=== PATIENT | male | born 1945 | race Caucasian/White ===

== ENCOUNTER 2020-04-27 09:35 | Outpatient (CLI) | payer MEDICARE, SELFPAY ==
--- NOTE | 2020-04-27 09:44 | XR_ITS ---
WS: [id number] Exam: XR lumbar spine 6V w f/e [id number] Date/Time of Exam: 04/27/2020 10:05 AM Reason For Exam: back pain No fracture or dislocation. Levoscoliosis of the lower T-spine and upper L-spine. Spondylosis noted. Degenerative disc thinning at all levels. Facet arthropathy at all levels. Flexion-extension views de monstrate no significant subluxation or instability. Posterior bone spurring of vertebral bodies seen at L1-2, L2-3 and L4-5. This can be related to spinal canal stenosis in the appropriate clinical set tin. XR/XR lumbar spine 6V w f/e [id number] IMPRESSION: 1. No fracture or malalignment noted. No instability or subluxation noted on fl exion or extension views. 2. Degenerative changes and scoliosis. See above discussion.
== END 2020-04-27 09:36 | disposition home or self-care (01) ==
PROVIDERS: PCP Nurse Practitioner Family; Visit Provider Family Medicine
DX: M54.5 Low back pain (principal)
CPT/HCPCS: 72114

== ENCOUNTER 2020-05-07 08:23 | Outpatient (CLI) | payer MEDICARE, SELFPAY ==
--- NOTE | 2020-05-07 08:43 | CT_ITS ---
WS: [id number] CT LUMBAR SPINE TECHNIQUE: Contrast-enhanced CT of the lumbar spine with coronal and sagittal reformatted images. CLINICAL INFORMATION: M48.061 - Spinal stenosis, lumbar region without neurogenic claudication COMPARISON: None. DLP: 1940.[address] scans at [facility] use at least one of these dose optimization techniques: automat ed exposure control; mA and/or kV adjustment per patient size (includes targeted exams where dose is matched to clinical indication); or iterative reconstruction. FINDINGS: Lumbar scoliosis convex right in the lumbar spine. No high-grade central canal stenosis. Prior postop erative changes probable left L3-4 L4-5 and left L5-S1 laminectomies. L1-L2: Disc osteophytic ridging with a tiny right subarticular disc osteophyte protrusion. Narrowing of the right subarticular recess. Impingement traversing right L2 nerve root. Moderate facet arthropa thy. Mild right foraminal narrowing. L2-L3: Shallow right subarticular disc bulging. Impingement on the traversing right L3 nerve root. Mi ld central canal stenosis. Moderate facet arthropathy. Foramen are patent. L3-L4: Mild disc bulging with osteophytic ridging. Moderate facet arthropathy. Mild central canal milka nosis. Mild right foraminal narrowing. Moderate facet arthropathy. L4-L5: Disc osteophyte complex with endplate ridging. Mild central canal stenosis. Impingement jose cruz sing L5 nerve roots bilaterally in the subarticular recess. Advanced facet arthropathy. Mild right fo raminal narrowing. Left foramen is patent. L5-S1: Tiny central disc osteophyte complex with slight contact of the traversing S1 nerve roots. Mil d central canal stenosis. Mild right and no significant left foraminal narrowing. Mild to moderate fa cet arthropathy. Visualized pelvic bony structures: Normal. Paravertebral soft tissues: Normal. CT/CT lumbar spine w con [id number] IMPRESSION: 1. Lumbar scoliosis convex right. No acute compression fractures. No high-grad e central canal stenosis. 2. Mild central canal stenosis L2-L3, L3-L4 and L4-5 worse L4-5 with impingeme nt traversing L5 nerve roots bilaterally. 3. Tiny central disc osteophyte protrusion L5-S1 slightly contacts the sam ing S1 nerve roots bilaterally. Mild right L5-S1 foraminal narrowing. 4. Otherwise mild bony foraminal narrowing worse at right L3-4, and right L4-5 . 5. Moderate facet arthropathy L3-L4. Advanced facet arthropathy L4-5. 6. Remote appearing probable laminectomy defects at L3-L4 L4-L5 and L5-S1
[2020-05-07 09:18] LABS: Blood Urea Nitrogen 15 mg/dL (8-23)
[2020-05-07] MEDS: iodixanol 320 mg/mL 100mL Btl IV (09:25)
== END 2020-05-07 08:24 | disposition home or self-care (01) ==
LOC: RAD 08:27 → WPI 08:32
PROVIDERS: PCP Family Medicine; Visit Provider Family Medicine
DX: M48.061 Spinal stenosis, lumbar region without neurogenic claudication (principal); M47.816 Spondylosis without myelopathy or radiculopathy, lumbar region; M25.78 Osteophyte, vertebrae; M51.27 Other intervertebral disc displacement, lumbosacral region; M41.86 Other forms of scoliosis, lumbar region
CPT/HCPCS: 72132; 82565; 84520

== ENCOUNTER 2024-04-21 06:25 | Inpatient (IN) | payer MEDICARE, SELFPAY ==
[2024-04-21] VITALS (30 sets, daily range): BP systolic 103–146; BP diastolic 63–105; PULSE 68–103; RESP 11–20; TEMP 36.6–36.9; O2SAT 85–99; BMI 28.7
--- NOTE | 2024-04-21 06:34 | CTR_ITS ---
PROCEDURE INFORMATION: Exam: CTA Head With Contrast, Arteriography Exam date and time: 04/21/2024 6:45 AM Age: 79 years old Clinical indication: Dizziness and giddiness; C/O dizziness with confusion. Last known well time of 0400 hours. ; Additional info: CVA TECHNIQUE: Imaging protocol: Computed tomographic angiography of the head with contrast. Exam focused on the arteries. 3D rendering (Not supervised by radiologist): MIP and/or 3D reconstructed images were created by the technologist. Radiation optimization: All CT scans at this facility use at least one of these dose optimization techniques: automated exposure control; mA and/or kV adjustment per patient size (includes targeted exams where dose is matched to clinical indication); or iterative reconstruction. Contrast material: OMNI 350; Contrast volume: 100 ml; Contrast route: INTRAVENOUS (IV); COMPARISON: CT head thrombolytic [id number] 04/21/2024 6:38 AM RADIATION DOSE METRICS: Total DLP (mGy-cm): 537.82 FINDINGS: ANTERIOR CIRCULATION: Right internal carotid artery: Intracranial segment is patent with no significant stenosis. No aneurysm. Right middle cerebral artery: No occlusion or significant stenosis. No aneurysm. Right anterior cerebral artery: No occlusion or significant stenosis. No aneurysm. Left internal carotid artery: Intracranial segment is patent with no significant stenosis. No aneurysm. Left middle cerebral artery: No occlusion or significant stenosis. No aneurysm. Left anterior cerebral artery: No occlusion or significant stenosis. No aneurysm. POSTERIOR CIRCULATION: Right vertebral artery: No occlusion or significant stenosis. No aneurysm. Left vertebral artery: No occlusion or significant stenosis. No aneurysm. Basilar artery: No occlusion or significant stenosis. No aneurysm. Right posterior cerebral artery: No occlusion or significant stenosis. No aneurysm. Left posterior cerebral artery: No occlusion or significant stenosis. No aneurysm. Brain: No definite mass, mass effect, or midline shift. Cerebral ventricles: No ventriculomegaly. Bones/joints: Unremarkable. No acute fracture. Soft tissues: Unremarkable. PROCEDURE INFORMATION: Exam: CTA Neck With Contrast Exam date and time: 04/21/2024 6:45 AM Age: 79 years old Clinical indication: Dizziness and giddiness; C/O dizziness with confusion. Last known well time of 0400 hours. ; Additional info: CVA TECHNIQUE: Imaging protocol: Computed tomographic angiography of the neck with contrast. Exam focused on the cervical segments of the vasculature. 3D rendering (Not supervised by radiologist): MIP and/or 3D reconstructed images were created by the technologist. Radiation optimization: All CT scans at this facility use at least one of these dose optimization techniques: automated exposure control; mA and/or kV adjustment per patient size (includes targeted exams where dose is matched to clinical indication); or iterative reconstruction. Contrast material: OMNI 350; Contrast volume: 100 ml; Contrast route: INTRAVENOUS (IV); COMPARISON: CT head thrombolytic [id number] 04/21/2024 6:38 AM RADIATION DOSE METRICS: Total DLP (mGy-cm): 537.82 FINDINGS: Right common carotid artery: No stenosis. No dissection or occlusion. Right internal carotid artery: No stenosis of the extracranial segment. No dissection or occlusion. Right external carotid artery: No occlusion or stenosis of the origin. Left common carotid artery: No stenosis. No dissection or occlusion. Left internal carotid artery: No stenosis of the extracranial segment. No dissection or occlusion. Left external carotid artery: No occlusion or stenosis of the origin. Right vertebral artery: No stenosis. No dissection or occlusion. Left vertebral artery: There is epqh-jy-bjtkipcn narrowing involving the origin of the left vertebral artery estimated at 50%. Soft tissues: Normal. No significant soft tissue swelling. Bones/joints: No acute fracture. Lungs: There are emphysematous changes at the lung apices. CT/CT angio headneck* [id number] IMPRESSION: No large vessel stenosis or occlusion. IMPRESSION: 1. Cqjw-hu-aeaeobhf narrowing involving the origin of the left vertebral artery with estimated stenosis of 50%. 2. No high-grade stenosis or occlusion identified. REFERENCES: NASCET CRITERIA. The degree of stenosis in the cervical segment of the internal carotid artery is based on NASCET criteria. Normal is no stenosis. Mild is less than 50% stenosis. Moderate is 50-69% stenosis. Severe is 70% to 99% stenosis. Total occlusion is no detectable patent lumen.
--- NOTE | 2024-04-21 06:34 | ECG_ITS ---
[place] Test Date: 2024-04-21 Pat Name: Cuate Paez Department: Room: Gender: Male Bung Remover: : 1945 Requested By: Parth Vaughn Order Number: [id number] Reading MD: ARTEMIO SMITH Measurements Intervals [place] Rate: 89 P: 50 GA: 198 QRS: -48 QRSD: 96 T: 64 QT: 327 QTc: 398 Interpretive Statements SINUS RHYTHM PATTERN CONSISTENT WITH PULMONARY DISEASE LEFT ANTERIOR FASCICULAR BLOCK [QRS AXIS <= -45, QR IN I, RS IN II] No previous ECG available for comparison Electronically Signed On 04-22-2024 18:08:47 CDT by ARTEMIO SMITH [email or web address]
--- NOTE | 2024-04-21 06:34 | XRR_ITS ---
PROCEDURE INFORMATION: Exam: XR Chest Exam date and time: 04/21/2024 6:49 AM Age: 79 years old Clinical indication: Other: CVA TECHNIQUE: Imaging protocol: Radiologic exam of the chest. Views: 1 view. COMPARISON: CT angio headneck* [id number] 04/21/2024 6:45 AM FINDINGS: Lungs: There are peripheral airspace opacities involving both lungs. These could be acute or chronic. Please note that there are no prior exams available for to document chronicity. Lungs are otherwise clear. Pleural spaces: Unremarkable. No pleural effusion. No pneumothorax. Heart/Mediastinum: Unremarkable. No cardiomegaly. Bones/joints: Unremarkable. XR/XR chest 1V portable [id number] IMPRESSION: 1. Peripheral airspace opacities involving both lungs. Potentially these could be chronic. Acute pneumonia can not be excluded on this single exam.
--- NOTE | 2024-04-21 06:34 | CTR_ITS ---
PROCEDURE INFORMATION: Exam: CT Head Without Contrast Exam date and time: 04/21/2024 6:38 AM Age: 79 years old Clinical indication: Stroke-like symptoms; Dizziness/giddiness; Additional info: Symptoms of acute stroke TECHNIQUE: Imaging protocol: Computed tomography of the head without contrast. Radiation optimization: All CT scans at this facility use at least one of these dose optimization techniques: automated exposure control; mA and/or kV adjustment per patient size (includes targeted exams where dose is matched to clinical indication); or iterative reconstruction. Other technique: STROKE PROTOCOL was implemented. COMPARISON: No relevant prior studies available. RADIATION DOSE METRICS: Total DLP (mGy-cm): 1101.18 FINDINGS: Brain: There is prominence of the subarachnoid spaces compatible with atrophy. There is small-vessel ischemic change within the periventricular white matter. No acute stroke or hemorrhage is appreciated. Cerebral ventricles: No ventriculomegaly. Paranasal sinuses: Visualized sinuses are unremarkable. No fluid levels. Mastoid air cells: Visualized mastoid air cells are well aerated. Bones: Unremarkable. No acute fracture. Soft tissues: Unremarkable. CT/CT head thrombolytic [id number] IMPRESSION: 1. Atrophy with small-vessel ischemic change. ASSESSMENT: ASPECTS (Shelli Stroke Program Early CT Score) is 10.
--- NOTE | 2024-04-21 06:35 | ED_ITS ---
HPI - Weakness 2 General: Chief complaint: Weakness Stated complaint: DIZZY,AMS Time Seen by Provider: 04/21/24 06:27 Source: patient and EMS Mode of arrival: EMS Limitations: no limitations History of Present Illness: 79-year-old male states that he had sudd en onset of dizziness weakness not feeling well and diaphoresis at 4 AM. He states he is awake when it happened. He states that since then he has felt very unsteady with his gait he denies any chest pain denies any headache denies any slurred speech or one-sided weakness. No history of stroke. Associated symptoms: Denies chest pain, chills, fever(s), headache(s), nausea or vomiting Review of Systems 2 Const: Denies: fever(s), chills, body aches or change in appetite Eyes: Denies: blurry vision or eye discomfort ENMT: Denies: throat pain or dental pain Card: Denies: chest pain Resp: Denies: dyspnea GI: Denies: abdominal pain, nausea, vomiting or diarrhea Musc: Denies: neck pain or back pain Skin/Breast: Denies: rash Neuro: Reports: vertigo; Denies: headache(s) PFSH ED 2 PFSH: Medical History Hx of skin cancer, basal cell Surgical History H/O tooth extraction History of lumbar surgery History of tonsillectomy H/O vasectomy Family History Other Arthritis Cancer Hypertension Social History Smoking and tobacco/nicotine status: former use of tobacco/nicotine Quit status (tobacco/nicotine): has quit using Year quit tobacco: 1995 Physical Exam 2 Const: COMMON NORMALS: patient oriented x3 HENMT: COMMON NORMALS: normocephalic and atraumatic HEAD & SCALP: n ormocephalic and atraumatic Eye: COMMON NORMALS: Equal, round and reactive pupils present and EOMs intact bilaterally PUPIL: Yes Equal, round and reactive pupils present Neck/C-Spine: COMMON NORMALS: full ROM and supple Chest: COMMONS NORMALS: normal inspection of the chest Resp: COMMON NORMALS: normal respiratory effort, No retractions, No use of accessory muscles and clear to auscultation bilaterally AUSCULTATION: clear to auscultation bilaterally Cardio: COMMON NORMALS: regular rate, regular rhythm and No murmurs present (Cardio) RATE: regular rate RHYTHM: regular rhythm GI: COMMON NORMALS: Normal to inspection, nondistended, normoactive bowel sounds present, Soft to palpation, non-tender and no masses PALPATION: Yes Soft to palpation Extremity: COMMON NORMALS: normal to inspection and full ROM Neuro: COMMON NORMALS: patient oriented x3 and moves all extremities C RANIAL NERVES: Yes CN normal except as noted SPEECH: speech normal GAIT: Y es Ataxic gait present MOTOR EXAM: 5/5 motor strength present throughout Psych: COMMON NORMALS: mental status grossly normal, Normal thought process present and cooperative THOUGHT PROCESS: Normal thought process present Skin: COMMON NORMALS: no rashes or lesions noted and no wounds GENERAL SKIN EXAM: no rashes or lesions noted Course 2 Vital Signs: Vital signs: Vital Signs Temperature 97.8 F 04/21/24 06:30 Pulse Rate 90 04/21/24 07:46 Respiratory Rate 18 04/21/24 07:46 Blood Pressure 122/79 04/21/24 07:46 Pulse Oximetry 96 04/21/24 07:25 Oxygen Delivery Me thod Room Air 04/21/24 07:25 MDM - Weakness Medical Decision Making Patient presents here with severe vertigo he is quite ataxic concerns for posterior stroke. I did consult [facility] neurology. We did have significant delay with difficulties with the telestroke machine. Dr. Moon was going to evaluate the patient she attempted to call into the telestroke machine and initially had connection but then the connection was lost we did attempt again that due to her not to be able to connect I did speak to her and we have made a mutual decision the patient did require TNKase I did give him TNKase here he consented spoke to the hospitalist will admit for likely CVA. Medical Records I reviewed the patient's medical records. Lab Data I reviewed the patient's lab results. 04/21/24 06:52 04/21/24 06:52 Radiology Impressions Chest X-Ray 04/21/24 06:34 IMPRESSION: 1. Peripheral airspace opacities involving both lungs. Potentially these could be chronic. Acute pneumonia can not be excluded on this single exam. Head CT 04/21/24 06:34 IMPRESSION: 1. Atrophy with small-vessel ischemic change. ASSESSMENT: ASPECTS (Shelli Stroke Program Early CT Score) is 10. ADDENDUM: 04/21/24 0706 COMMENT: THIS REPORT CONTAINS FINDINGS THAT MAY BE CRITICAL TO PATIENT CARE. The exam findings were verbally communicated by me to KULWANT QUINONEZ via telephone conference at 7:04 AM CDT on 04/21/2024. The findings were acknowledged and understood. Head/Neck CTA 04/21/24 06:34 IMPRESSION: No large vessel stenosis or occlusion. IMPRESSION: 1. Pbqm-eg-jpmsvwht narrowing involving the origin of the left vertebral artery with estimated stenosis of 50%. 2. No high-grade stenosis or occlusion identified. REFERENCES: NASCET CRITERIA. The degree of stenosis in the cervical segment of the internal carotid artery is based on NASCET criteria. Normal is no stenosis. Mild is less than 50% stenosis. Moderate is 50-69% stenosis. Severe is 70% to 99% stenosis. Total occlusion is no detectable patent lumen. Laboratory Results WBC 8.40 10^3/uL (3.29-11.43) 04/21/24 06:52 RBC 5.48 10^6/uL (3.85-5.65) 04/21/24 06:52 Hgb 15.00 g/dL (11.27-16.99) 04/21/24 06:52 Hct 45.3 % (37-53) 04/21/24 06:52 MCV 82.7 fl (82-101) 04/21/24 06:52 MCH 27.4 pg (27-33) 04/21/24 06:52 MCHC 33.1 g/dL (30-55) 04/21/24 06:52 RDW 12.6 % (12.1-15.1) 04/21/24 06:52 Plt Count 232 10^3/cmm (157-399) 04/21/24 06:52 MPV 10.0 fL (7.4-10.4) 04/21/24 06:52 Neut % (Auto) 73.2 % 04/21/24 06:52 Lymph % (Auto) 17.1 % 04/21/24 06:52 [place] % (Auto) 6.1 % 04/21/24 06:52 Eos % (Auto) 2.5 % 04/21/24 06:52 Baso % (Auto) 1.0 % 04/21/24 06:52 Neut # (Auto) 6.15 10^3/uL (1.8-7.7) 04/21/24 06:52 Lymph # (Auto) 1.4 10^3/uL (0.8-4.8) 04/21/24 06:52 [place] # (Auto) 0.5 10^3/uL (0.2-0.9) 04/21/24 06:52 Eos # (Auto) 0.2 10^3/uL (0.0-0.8) 04/21/24 06:52 Baso # (Auto) 0.1 10^3/uL (0.0-0.1) 04/21/24 06:52 Nucleated RBC % (auto) 0 % 04/21/24 06:52 Nucleated RBCs # 0.0 /100WBC 04/21/24 06:52 PT 13.90 SECONDS (12.1-14.9) 04/21/24 06:52 INR 1.00 (0.8-1.2) 04/21/24 06:52 APTT 30.5 SECONDS (23.9-36.7) 04/21/24 06:52 Sodium 139 mmol/L (136-145) 04/21/24 06:52 Potassium 4.3 mmol/L (3.5-5.1) 04/21/24 06:52 Chloride 102 mmol/L (98-107) 04/21/24 06:52 Carbon Dioxide 24 mmol/L (22-29) 04/21/24 06:52 Anion Gap 17.3 (5-19) 04/21/24 06:52 BUN 15 mg/dL (8-23) 04/21/24 06:52 Creatinine 1.2 mg/dL (0.7-1.2) 04/21/24 06:52 GFR Calculation Not Reportable 04/21/24 06:52 Glucose 124 mg/dL (65-115) H 04/21/24 06:52 POC Glucose 126 mg/dL (70-110) H 04/21/24 06:48 Calculated Osmolality 290 mOsm/kg (285-295) 04/21/24 06:52 Calcium 9.6 mg/dL (8.5-10.5) 04/21/24 06:52 Total Bilirubin 0.6 mg/dL (0.15-1.2) 04/21/24 06:52 AST 23 U/L (0-40) 04/21/24 06:52 ALT 22 U/L (0-41) 04/21/24 06:52 Alkaline Phosphatase 97 U/L (40-130) 04/21/24 06:52 Total Protein 7.5 g/dL (6.6-8.7) 04/21/24 06:52 Albumin 4.4 g/dL (3.5-5.2) 04/21/24 06:52 Globulin 3.1 g/dL (1.3-4.6) 04/21/24 06:52 All radiology interpretation(s) finalized by discharge EKG Data EKG 1: I personally reviewed and interpreted this EKG as follows: EKG interpretation date: 04/21/24 EKG interpretation time: 06:56 Interpretation: nsr hr [address] elevation qrs 96 qtc 373 Discharge Plan Discharge Patient Disposition: Admitted As Inpatient Clinical Impression: CVA (cerebral vascular accident), Vertigo Condition: Stable Prescriptions: No Action celecoxib 200 mg capsule 200 mg PO DAILY Qty: 90 1RF Referrals: Genna Rios MD [Primary Care Provider] - Print Language: Hungarian Coding Level of Care Code ED Recruiting Team Lead for Chg Fwd Related Data Previous Rx's ?Medication ?Instructions ?Recorded celecoxib 200 mg capsule 200 mg PO DAILY #90 caps 02/27 Allergies Allergy/AdvReac Type Severity Reaction Status Date / Time No Known Allergies Allergy Verified 04/23/20 14:08 NIH stroke score NIHSS Level Of Consciousness - 1a: 0 Level Of Consciousness Questions - 1b: Both Correct Level Of Consciousness Commands - 1c: Both Correct Best Gaze - 2: Normal Visual Nesbitt - 3: No Visual Loss Facial Palsy - 4: Normal Motor Arm Right - 5: No Drift Motor Arm Left - 5: No Drift Motor Leg Right - 6: No Drift Motor Leg Left - 6: No Drift Limb Ataxia - 7: Absent Sensory - 8: Normal Best Language - 9: No Aphasia Dysarthia - 10: Normal Extinction And Inattention - 11: 0 Score Total Score: 0
[2024-04-21] MEDS: iohexol 350 mg/mL 500 mL Btl (per mL) IV (06:52)
[2024-04-21 06:55] LABS: Glucose Point of Care 126 mg/dL (70-110)
--- NOTE | 2024-04-21 06:55 | PC.NURSE ---
bg 126
[2024-04-21 07:02] LABS: Basophils # 0.1 10^3/uL (0.0-0.1); Eosinophils # 0.2 10^3/uL (0.0-0.8); Eosinophils % 2.5 %; Hematocrit 45.3 % (37-53); Lymphocytes # 1.4 10^3/uL (0.8-4.8); Lymphocytes % 17.1 %; Mean Corpuscular HGB Conc 33.1 g/dL (30-55); Mean Corpuscular Hemoglobin 27.4 pg (27-33); Mean Corpuscular Volume 82.7 fl (82-101); Monocytes # 0.5 10^3/uL (0.2-0.9); Monocytes % 6.1 %; Neutrophils # 6.15 10^3/uL (1.8-7.7); Neutrophils % 73.2 %; Nucleated Red Blood Cells % 0 %; Platelet Count 232 10^3/cmm (157-399); Red Blood Count 5.48 10^6/uL (3.85-5.65); Red Cell Distribution Width 12.6 % (12.1-15.1)
[2024-04-21 07:11] LABS: Partial Thromboplastin Time 30.5 SECONDS (23.9-36.7)
[2024-04-21 07:14] LABS: Alanine Aminotransferase 22 U/L (0-41); Albumin Level 4.4 g/dL (3.5-5.2); Alkaline Phosphatase 97 U/L (40-130); Aspartate Amino Transferase 23 U/L (0-40); Blood Urea Nitrogen 15 mg/dL (8-23); Calcium 9.6 mg/dL (8.5-10.5); Carbon Dioxide 24 mmol/L (22-29); Chloride 102 mmol/L (98-107); Globulin 3.1 g/dL (1.3-4.6); Glucose 124 mg/dL (65-115); Osmolality Calculated 290 mOsm/kg (285-295); Sodium 139 mmol/L (136-145); Total Bilirubin 0.6 mg/dL (0.15-1.2); Total Protein 7.5 g/dL (6.6-8.7)
[2024-04-21 07:16] LABS: Anion Gap 17.3 (5-19); Potassium 4.3 mmol/L (3.5-5.1)
[2024-04-21] MEDS: tenecteplase 50mg Kit (STROKE) 23 MG IVP (07:28)
--- NOTE | 2024-04-21 07:31 | P.HP_ITS ---
Providers/Chief Complaint 2 Primary Care Provider: Genna Rios MD Chief Complaint: DIZZY,AMS History of Present Illness Cuate Paez is a 79 year old male with a past medical history significant for spinal stenosis and back pain who presents to the emergency department with sudden onset of dizziness and weakness. Reports onset at 4 AM. Reports associated diaphoresis. Standing, movement and walking significantly worsens his symptoms. Resting still improves symptoms. Denies fevers, chills, headache, vision changes, slurred speech, weakness in extremities, or sensation changes. Denies history of prior TIA or stroke. In the emergency department, CT head showed atrophy with small vessel ischemic changes. 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 ED provider reports he consulted and discussed patient with [facility] neurology which recommended TNKase which was administered. Review of Systems 2 Narrative: A complete review of systems was obtained and is negative except as stated in HPI. Medications/Allergies Home Medications ?Medication ?Instructions ?Recorded ?Confirmed ?Last Taken ?Type celecoxib 200 mg capsule 200 mg PO DAILY #90 caps 02/2704/21/24 04/20/24 Rx acetaminophen 325 mg tablet 650 mg PO QID PRN Fever Or Pain 04/21/24 04/21/24 Unknown History (Tylenol) atorvastatin 20 mg tablet 20 mg PO BEDTIME 04/21/2404/19/24 20:00 History multivitamin 1 tab PO DAILY 04/21/2404/0604/20/24 History omeprazole 40 mg capsule,delayed 40 mg PO DAILY 04/21/24 04/20/24 History release Allergies Allergy/AdvReac Type Severity Reaction Status Date / Time No Known Allergies Allergy Verified 04/23/20 14:08 PFSH Acute 2 PFSH: Medical History Hx of skin cancer, basal cell Surgical History H/O tooth extraction History of lumbar surgery History of tonsillectomy H/O vasectomy Family History Other Arthritis Cancer Hypertension Social History (Updated 04/21/24 @ 12:21 by Vineet Houston MD) Smoking and tobacco/nicotine status: former use of tobacco/nicotine Quit status (tobacco/nicotine): has quit using Year quit tobacco: 1995 Alcohol intake: never Substance/Drug Use: never Vitals/I&O/Wt Last Vital Signs Temp 97.8 F 04/21/24 06:30 Pulse 97 04/21/24 07:25 Resp 18 04/21/24 07:25 BP 146/88 04/21/24 07:25 Pulse Ox 96 04/21/24 07:25 O2 Del Method Room Air 04/21/24 07:25 04/20/24 04/21/24 04/21/24 22:59 06:59 14:59 Intake Total 0 / 0 Balance 0 / 0 Weight last 48 hrs Weight 97.976 kg Weight 90.718 kg Physical Exam 2 Narrative: General: Patient is awake and alert. Head: Normocephalic. Atraumatic. EOM intact. Neck: No JVD. Cardiovascular: RRR. No gallops. No murmurs. Lungs: Clear to auscultation, no use of accessory muscles, no crackles or wheezes. Skin: No jaundice. No rashes. Abdomen: Normal bowel sounds, abdomen soft and nontender. Genito Urinary: Genital exam not performed since complaints not related. Rectal: Rectal exam not performed since no symptoms indicated blood loss. Extremities: No cyanosis or clubbing. Musculoskeletal:No swollen or erythematous joints. Neurological: Moves all 4 extremities. No myoclonus. Cranial nerves II through XII grossly intact. Ataxia present in bilateral upper extremities, left worse than right. Gait was not observed due to symptomatology. Data 04/21/24 06:52 04/21/24 06:52 A&P Assessment and plan (1) CVA (cerebral vascular accident): Presentation is slightly suspicious for posterior stroke Imaging reviewed Repeat head CT in 24 hours Echo ordered Telemetry monitoring Patient is status post TNKase in ED Admit to the intensive care unit under thrombolytic protocol Serial neurological exams Bedside swallow check with aspiration precautions Serial NIH Hold antiplatelet and anticoagulation due to TNKase Start high intensity statin Check lipids and A1c (2) Vertigo: Vertigo suspected to be secondary to CVA PT and OT reqeusted (3) Hyperglycemia: Mild hyperglycemia Check A1c (4) Lumbar spinal stenosis: Hold home antiplatelet agent (5) Hyperlipidemia: Check lipids High intensity statin PDMP PDMP Reviewed: Not Reviewed Attestations 2 Medical Necessity Statement*: Pt presents w/ stroke like symptoms treated with TNKase with expected hospitalization to cross two midnights for post TNKase protocol, therapy evaluation, stroke work up and supportive care. Coding Level of Care Code Acute Code for Chg Fwd Diagnoses CVA (cerebral vascular accident) I63.9 Vertigo R42 Hyperglycemia R73.9 Lumbar spinal stenosis M48.061 Hyperlipidemia E78.5
[2024-04-21] MEDS: ondansetron 2 mg/ML SDV 2 mL 4 MG IVP (07:37)
--- NOTE | 2024-04-21 08:56 | USCV_ITS ---
Cuate Paez Age: 79 Gender: M : 1945 Exam Date: 04/21/2024 13:35 Ordering Phys: Vineet Houston MD Technologist: Jose Blackburn [place] [facility] [place] eval BP: 144 / 87 HR: 85 Rhythm: Sinus Technical Quality: Adequate MEASUREMENTS (Male / Female) Normal Values 2D ECHO LV Diastolic Diameter PLAX 4.3 cm 4.2 - 5.9 / 3.9 - 5.3 cm IVS Diastolic Thickness 1.2 cm 0.6 - 1.0 / 0.6 - 0.9 cm IVS Systolic Thickness 1.6 cm LVPW Diastolic Thickness 1.5 cm 0.6 - 1.0 / 0.6 - 0.9 cm LVPW Systolic Thickness 1.6 cm LVOT Diameter 2.0 cm LV Ejection Fraction 2D Teich 73.1 % LV Ejection Fraction MOD 4C 73.6 % LV Ejection Fraction MOD 2C 67.9 % LV Ejection Fraction 2C AL 66.3 % LA Diameter 3.8 cm RA Systolic Volume 4C AL 25.4 ml RA Systolic Volume 4C MOD 22.2 ml Aorta at Sinotubular Diameter 2.7 cm IVC Diameter 1.9 cm M-MODE LA Ao Ratio MM 1.4 AV Cusp Separation MM 2.1 cm DOPPLER AV Peak Velocity 101.0 cm/s LVOT Peak Velocity 65.0 cm/s AV Area Cont Eq vti 2.4 cm squared AV Area Cont Eq pk 2.1 cm squared MV Peak Velocity 119.0 cm/s MV Area PHT 7.1 cm squared Mitral E to A Ratio 0.6 TV Peak Velocity 304.0 cm/s TR Peak Velocity 329.0 cm/s TR Peak Gradient 43.3 mmHg TR Mean Velocity 259.0 cm/s TR Mean Gradient 29.4 mmHg TR Velocity Time Integral 93.2 cm PV Peak Velocity 106.0 cm/s RV Ejection Time 0.2 s FINDINGS Left Ventricle Normal left ventricular size, systolic function and wall thickness, with no regional wall motion abnormalities. Left ventricular ejection fraction is estimated at 60 %. Grade I/IV diastolic dysfunction (abnormal relaxation filling pattern), normal to mildly elevated filling pressures. Right Ventricle The right ventricle is normal in size and function. Right Atrium The right atrium is normal in size. Left Atrium The left atrium is normal in size. Mitral Valve Structurally normal mitral valve without significant stenosis or prolapse. There is no mitral regurgitation. Aortic Valve Structurally normal aortic valve without significant sclerosis or stenosis. There is no aortic regurgitation. Tricuspid Valve Structurally normal tricuspid valve without significant stenosis or regurgitation. Pulmonary artery systolic pressure is normal. Pulmonic Valve Structurally normal pulmonic valve without significant stenosis. There is no pulmonic regurgitation. Pericardium Normal pericardium without effusion. Aorta Normal ascending aorta dimension. IVC The inferior vena cava appears normal. CONCLUSIONS Normal left ventricular size, systolic function and wall thickness, with no regional wall motion abnormalities. Left ventricular ejection fraction is estimated at 60 %. Grade I/IV diastolic dysfunction (abnormal relaxation filling pattern), normal to mildly elevated filling pressures. There is no pericardial effusion. No significant chamber abnormalities. No significant valve abnormalities. There is no pericardial effusion. Right atrial pressure is around 5 mm of mercury. Keaton Andrews MD (Electronically Signed) Final Date: 21 April 2024 16:17 S
[2024-04-21 11:28] LABS: Bilirubin Urine Negative (Negative); Blood Urine Negative (Negative); Glucose Urine UA Negative (Normal); Ketones Urine Trace (Negative); Leukocyte Esterase Urine Negative (Negative); Nitrate Urine Negative (Negative); Protein Urine Trace (Negative); Urine Appearance Clear (CLEAR); Urine Color Yellow (Yellow)
[2024-04-21 11:33] LABS: Add Urine Microscopic? YES; Bacteria Urine None Seen /hpf; RBC Urine 0-2 /hpf (0-2); Squamous Epithelial Cell Urine 0-5 /hpf (0-5); WBC Urine 0-5 /hpf (0-5)
[2024-04-21 11:34] LABS: Amphetamines Screen Urine Negative (Negative); Barbiturates Screen Urine Negative (Negative); Benzodiazepines Screen Urine Negative (Negative); Cocaine Screen Urine Negative (Negative); Opiate Screen Urine Negative (Negative); PCP Screen Urine Negative (Negative); THC Screen Urine Negative (Negative)
[2024-04-21 11:36] LABS: Specific Gravity, Urine 1.068 (1.005-1.030)
[2024-04-21 21:03] LABS: Glucose Point of Care 109 mg/dL (70-110)
[2024-04-21] MEDS: atorvastatin 40 mg Tablet 80 MG PO (21:24)
[2024-04-22] VITALS (15 sets, daily range): BP systolic 95–145; BP diastolic 50–91; PULSE 74–100; RESP 11–29; TEMP 36.8; O2SAT 91–96
--- NOTE | 2024-04-22 06:52 | P.DS_ITS ---
Discharge Providers Date of Admission: 04/21/24 07:40 Date of Discharge: April 22, 2024 Attending Provider at Admission: Vineet Houston MD Attending Provider at Discharge: Vineet Houston MD Primary Care Provider: Genna Rios MD Diagnoses at Discharge Discharge Diagnosis (1) CVA (cerebral vascular accident): Status: Acute (2) Vertigo: Status: Acute (3) Hyperglycemia: Status: Acute (4) Lumbar spinal stenosis: Status: Acute (5) Hyperlipidemia: Status: Acute Reason for Visit Reason for Visit: DIZZY,AMS Hospital Course Hospital Course 79-year-old male who was admitted for management evaluation of sudden onset dizziness and weakness, he was evaluated by [facility] neurology who recommended TNKase, after his TNKase treatment he was admitted to the ICU for closer monitoring, remained hemodynamically stable, patient is stating that he does not want to stay longer in the hospital because he was not able to sleep well, he does not want to wait for MRI or his therapy sessions, patient is stating that he is feeling much better his dizziness has improved, echo showed preserved action fraction with diastolic dysfunction, CT head showed atrophy with small vessel ischemic changes. 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 Physical Exam Narrative: Patient laying supine Anxious appearing stating that he could not sleep well No active focal deficits Discharge Data Studies Completed and Pending Completed Studies During Hospitalization Category Date Time Status CT angio headneck* [id number] Stat Cat Scan 04/21/24 06:[address] head thrombolytic [id number] Stat Cat Scan 04/21/24 06:34 Completed XR chest 1V portable [id number] Stat Exams 04/21/24 06:34 Completed CV. echo complete* [id number] Routine Ultrasound 04/21/24 08:56 Completed Pending at discharge Category Date Time Status Hemoglobin A1C AM LABS Lab 04/22/24 04:00 Ordered Lipid Panel AM LABS Lab 04/22/24 04:00 Ordered MR head wo con* [id number] Routine MRI 04/22/24 06:28 Ordered Radiology Impressions Chest X-Ray 04/21/24 06:34 IMPRESSION: 1. Peripheral airspace opacities involving both lungs. Potentially these could be chronic. Acute pneumonia can not be excluded on this single exam. Head CT 04/21/24 06:34 IMPRESSION: 1. Atrophy with small-vessel ischemic change. ASSESSMENT: ASPECTS ([place] Stroke Program Early CT Score) is 10. ADDENDUM: 04/21/24 [id number] COMMENT: THIS REPORT CONTAINS FINDINGS THAT MAY BE CRITICAL TO PATIENT CARE. The exam findings were verbally communicated by me to KULWANT QUINONEZ via telephone conference at 7:04 AM CDT on 04/21/2024. The findings were acknowledged and understood. Head/Neck CTA 04/21/24 06:34 IMPRESSION: No large vessel stenosis or occlusion. IMPRESSION: 1. [id number] narrowing involving the origin of the left vertebral artery with estimated stenosis of 50%. 2. No high-grade stenosis or occlusion identified. REFERENCES: NASCET CRITERIA. The degree of stenosis in the cervical segment of the internal carotid artery is based on NASCET criteria. Normal is no stenosis. Mild is less than 50% stenosis. Moderate is 50-69% stenosis. Severe is 70% to 99% stenosis. Total occlusion is no detectable patent lumen. Laboratory Results WBC 8.40 10^3/uL (3.29-11.43) 04/21/24 06:52 RBC 5.48 10^6/uL (3.85-5.65) 04/21/24 06:52 Hgb 15.00 g/dL (11.27-16.99) 04/21/24 06:52 Hct 45.3 % (37-53) 04/21/24 06:52 MCV 82.7 fl (82-101) 04/21/24 06:52 MCH 27.4 pg (27-33) 04/21/24 06:52 MCHC 33.1 g/dL (30-55) 04/21/24 06:52 RDW 12.6 % (12.1-15.1) 04/21/24 06:52 Plt Count 232 10^3/cmm (157-399) 04/21/24 06:52 MPV 10.0 fL (7.4-10.4) 04/21/24 06:52 Neut % (Auto) 73.2 % 04/21/24 06:52 Lymph % (Auto) 17.1 % 04/21/24 06:52 [place] % (Auto) 6.1 % 04/21/24 06:52 Eos % (Auto) 2.5 % 04/21/24 06:52 Baso % (Auto) 1.0 % 04/21/24 06:52 Neut # (Auto) 6.15 10^3/uL (1.8-7.7) 04/21/24 06:52 Lymph # (Auto) 1.4 10^3/uL (0.8-4.8) 04/21/24 06:52 [place] # (Auto) 0.5 10^3/uL (0.2-0.9) 04/21/24 06:52 Eos # (Auto) 0.2 10^3/uL (0.0-0.8) 04/21/24 06:52 Baso # (Auto) 0.1 10^3/uL (0.0-0.1) 04/21/24 06:52 Nucleated RBC % (auto) 0 % 04/21/24 06:52 Nucleated RBCs # 0.0 /100WBC 04/21/24 06:52 PT 13.90 SECONDS (12.1-14.9) 04/21/24 06:52 INR 1.00 (0.8-1.2) 04/21/24 06:52 APTT 30.5 SECONDS (23.9-36.7) 04/21/24 06:52 Sodium 139 mmol/L (136-145) 04/21/24 06:52 Potassium 4.3 mmol/L (3.5-5.1) 04/21/24 06:52 Chloride 102 mmol/L (98-107) 04/21/24 06:52 Carbon Dioxide 24 mmol/L (22-29) 04/21/24 06:52 Anion Gap 17.3 (5-19) 04/21/24 06:52 BUN 15 mg/dL (8-23) 04/21/24 06:52 Creatinine 1.2 mg/dL (0.7-1.2) 04/21/24 06:52 GFR Calculation Not Reportable 04/21/24 06:52 Glucose 124 mg/dL (65-115) H 04/21/24 06:52 POC Glucose 109 mg/dL (70-110) 04/21/24 20:20 Calculated Osmolality 290 mOsm/kg (285-295) 04/21/24 06:52 Calcium 9.6 mg/dL (8.5-10.5) 04/21/24 06:52 Total Bilirubin 0.6 mg/dL (0.15-1.2) 04/21/24 06:52 AST 23 U/L (0-40) 04/21/24 06:52 ALT 22 U/L (0-41) 04/21/24 06:52 Alkaline Phosphatase 97 U/L (40-130) 04/21/24 06:52 Total Protein 7.5 g/dL (6.6-8.7) 04/21/24 06:52 Albumin 4.4 g/dL (3.5-5.2) 04/21/24 06:52 Globulin 3.1 g/dL (1.3-4.6) 04/21/24 06:52 Urine Color Yellow (Yellow) 04/21/24 10:22 Urine Appearance Clear (CLEAR) 04/21/24 10:22 Urine pH 8.0 (5-7) A 04/21/24 10:22 Ur Specific [place] 1.068 (1.005-1.030) H 04/21/24 10:22 Urine Protein Trace (Negative) A 04/21/24 10:22 Urine Glucose (UA) Negative (Normal) 04/21/24 10:22 Urine Ketones Trace (Negative) 04/21/24 10:22 Urine Blood Negative (Negative) 04/21/24 10:22 Urine Nitrate Negative (Negative) 04/21/24 10:22 Urine Bilirubin Negative (Negative) 04/21/24 10:22 Urine Urobilinogen 1.0 mg/dL (Negative) 04/21/24 10:22 Ur Leukocyte Esterase Negative (Negative) 04/21/24 10:22 Urine RBC 0-2 /hpf (0-2) 04/21/24 10:22 Urine WBC 0-5 /hpf (0-5) 04/21/24 10:22 Ur Squamous Epith Cells 0-5 /hpf (0-5) 04/21/24 10:22 Amorphous Sediment Not Reportable 04/21/24 10:22 Urine Bacteria None seen /hpf (NONE) 04/21/24 10:22 Hyaline Casts 0.40 /lpf 04/21/24 10:22 Urine Opiates Screen Negative ng/mL (Negative) 04/21/24 10:22 Ur Barbiturates Screen Negative ng/mL (Negative) 04/21/24 10:22 Ur Phencyclidine Scrn Negative ng/mL (Negative) 04/21/24 10:22 Ur Amphetamines Screen Negative ng/mL (Negative) 04/21/24 10:22 U Benzodiazepines Scrn Negative ng/mL (Negative) 04/21/24 10:22 Urine Cocaine Screen Negative ng/mL (Negative) 04/21/24 10:22 U Marijuana (THC) Screen Negative ng/mL (Negative) 04/21/24 10:22 Vitals Last Vital Signs Temp 98.2 F 04/22/24 04:00 Pulse 84 04/22/24 06:00 Resp 14 04/22/24 06:00 BP 98/64 04/22/24 06:00 Pulse Ox 95 04/22/24 06:00 O2 Del Method Nasal Cannula 04/22/24 06:00 O2 Flow Rate 2 04/22/24 06:00 Discharge Plan Discharge Patient Disposition: Home Condition: Stable Prescriptions: New aspirin 81 mg tablet,delayed release (DR/EC) 81 mg PO DAILY Qty: 90 3RF Rx Instructions: start taking 04/23 Continued acetaminophen [Tylenol] 325 mg Tablet 650 mg PO QID PRN (Reason: Fever Or Pain) omeprazole 40 mg Capsule,Delayed Release(Dr/Ec) 40 mg PO DAILY Changed atorvastatin 20 mg tablet 80 mg PO BEDTIME Qty: 90 3RF Discontinued celecoxib 200 mg capsule 200 mg PO DAILY Qty: 90 1RF multivitamin [Daily Vitamin] Tablet 1 tab PO DAILY Discharge Orders: Discharge Order (Routine); Ordered 04/22/24 Ordered By: Lilia Young Referrals: Gen Christianson MD [Physician] - 07/25/24 8:00 am Genna Rios MD [Primary Care Provider] - 7-10 days ( Office will call you with an appt. ) Discharge Diet: Cardiac Discharge Activity: As per PT/OT instructions Patient Instructions: Aspirin (By mouth), Hyperglycemia, Heart Healthy Diet (DC), Vertigo (DC), Self Care Measures After a Stroke (DC), Hyperlipidemia (DC), Stroke (GEN), Opioid Safety Discharge Attestations Time Spent in Discharge Care*: greater than 30 min Quality Metrics Clinical Quality Measures [ Cerebrovascular Accident { Contraindication to Antithrombotic: None; antithrombotic prescribed; Contraindication to Anticoagulation: Medical contraindication; Contraindication to Statin: None; Statin prescribed; Contraindication to antithrombotic day 2: Drug declined by patient; Reason stroke education not provided: Stroke education provided to patient; Reason rehab assessment not done: Patient refused}] Coding Level of Care Code Acute Code for Chg Fwd Diagnoses CVA (cerebral vascular accident) I63.9 Vertigo R42 Hyperglycemia R73.9 Lumbar spinal stenosis M48.061 Hyperlipidemia E78.5
[2024-04-22] MEDS: pneumococcal (23 valent) SDV 0.5 mL IM (08:36)
--- NOTE | 2024-04-22 10:09 | CTR_ITS ---
PROCEDURE INFORMATION: Exam: CT Head Without Contrast Exam date and time: 04/22/2024 10:17 AM Age: 79 years old Clinical indication: Other: Post tnkase. Patient presented with dizziness and giddiness. TECHNIQUE: Imaging protocol: Computed tomography of the head without contrast. Radiation optimization: All CT scans at this facility use at least one of these dose optimization techniques: automated exposure control; mA and/or kV adjustment per patient size (includes targeted exams where dose is matched to clinical indication); or iterative reconstruction. COMPARISON: CT angio headneck* [id number] 04/21/2024 6:45 AM RADIATION DOSE METRICS: Total DLP (mGy-cm): 1103.84 FINDINGS: Brain: No new intracranial hemorrhage or new intracranial mass effect is identified compared to exam of 04/21/2024. No subdural collections are seen. Mild chronic small-vessel ischemic changes are again evident. Cerebral ventricles: Size within normal range for age. No midline shift. Paranasal sinuses: Visualized portions of paranasal sinuses are well aerated. Mastoid air cells: Visualized portions of mastoid sinuses are not opacified. Bones: Unremarkable. No acute fracture. Soft tissues: Other than as stated above, no obvious acute abnormality. CT/CT head wo con* [id number] IMPRESSION: No acute intracranial hemorrhage or mass effect.
[2024-04-22 10:28] LABS: Estmated Average Glucose 123; Hemoglobin A1C 5.9 % (4.0-6.0)
--- NOTE | 2024-04-22 10:28 | PC.NURSE ---
park activities coordinator rounds, gave patient and his the stroke education book. Pt states he feels good and is looking forward to going home today. No deficits noted. Pt sitting up in the chair.
[2024-04-22 10:33] LABS: Chol HDL Ratio 4.32 mg/dL (1.0-5.00); Cholesterol 164 mg/dL (0-200); HDL Cholesterol 38 mg/dL (60-100); LDL Cholesterol Calculated 89 mg/dL (50-129); LDL HDL Ratio 2.34 RATIO (0.00-3.22); Triglycerides 187 mg/dL (0-150)
--- NOTE | 2024-04-22 13:44 | PC.NURSE ---
Patient was given all discharge instructions. Stroke education was provided. Patient was given all prescriptions and prescriptions were sent to the pharmacy. All IVs were discontinued. Patient was stable during discharge.
--- NOTE | 2024-05-08 12:18 | PC.NURSE ---
Flue Blower follow up phone call completed at 1215- patient states he is doing great . He has followed up with his PCP in [place]. Patient stated he doesn't want to do neurology follow up because he is doing so well. Patient states he has had no neurological or bleeding symptoms.
== END 2024-04-22 13:35 | disposition home or self-care (01) | DRG 63 ==
LOC: ER 08:02 → ICU 08:17
PROVIDERS: Admitting Provider Internal Medicine; Emergency Provider Emergency Medicine; PCP Family Medicine; Visit Provider Internal Medicine
DX: I63.9 Cerebral infarction, unspecified (principal); I65.02 Occlusion and stenosis of left vertebral artery; R73.9 Hyperglycemia, unspecified; R27.0 Ataxia, unspecified; M48.061 Spinal stenosis, lumbar region without neurogenic claudication; E78.5 Hyperlipidemia, unspecified; Z79.899 Other long term (current) drug therapy; Z85.828 Personal history of other malignant neoplasm of skin; Z87.891 Personal history of nicotine dependence; R29.700 NIHSS score 0; Z79.1 Long term (current) use of non-steroidal anti-inflammatories (NSAID)
CPT/HCPCS: 36416; 70450; 70496; 70498; 71045; 80053; 80061; 80306; 81001; 82962; 83036; 85025; 85610; 85730; 90471; 90732; 92523; 92610; 93005; 93306; 96374; 96375; 96376; 97161; 97165; 99285; 99291; 99292; J2405; J3101; J9999